=== PATIENT | male | born 1990 | race Caucasian/White ===

== ENCOUNTER 2016-11-14 12:06 | Emergency (ER) | payer OTHER ==
[~2016-11-14] VITALS: Ht 175.3 cm; Wt 129.0 kg
[2016-11-14 18:00] VITALS: BP 153/89
[2016-11-14] MEDS ORDERED: KETOROLAC 60MG/2ML VIAL IM ONE (18:00)
== END 2016-11-14 18:21 | disposition home or self-care (01) ==
LOC: ER 12:06
DX: J06.0 Acute laryngopharyngitis (principal)
CPT/HCPCS: 96372; 99283; J1885